=== PATIENT | male | born 1965 | race American Indian/Alaskan Native ===

== ENCOUNTER 2016-12-24 22:22 | Emergency (ER) | payer SELFPAY ==
[2016-12-24] MEDS ORDERED: NACL 0.9% IR ONE (23:30)
[2016-12-24] MEDS ORDERED: NACL 0.9% 500 ML IR ONE (23:31)
--- NOTE | 2016-12-25 00:30 | Emergency Department Report ---
ED Laceration HPI - HPI Chief Complaint: Laceration/Recheck/Suture Stated Complaint: HAND INJURY Time Seen by Provider: 12/25/16 00:19 Location: Upper Extremity Severity: moderate Tetanus Status: Up to Date Laceration Symptoms: Yes Pain, No Foreign Body Sensation, No Numbness, No Weakness Other History: Patient is a 51-year-old male presents to ED status post sustaining a hand laceration palm. Patient states he was in his garage open- ended door when one of the pellets cut him in hands palm. Patient states vaginal bleeding after incident bleeding was stopped with gauze wrap. Patient states he had tetanus booster about 2 years ago. Patient states minimal pain to the hand. ED Review of Systems ROS: Stated complaint: HAND INJURY Other details as noted in HPI Constitutional: denies: chills, fever Eyes: denies: eye pain, eye discharge, vision change ENT: denies: ear pain, throat pain Respiratory: denies: cough, shortness of breath, wheezing Cardiovascular: denies: chest pain, palpitations Endocrine: no symptoms reported Gastrointestinal: denies: abdominal pain, nausea, diarrhea Genitourinary: denies: urgency, dysuria Musculoskeletal: denies: back pain, joint swelling, arthralgia Skin: denies: rash, lesions Neurological: denies: headache, weakness, paresthesias Psychiatric: denies: anxiety, depression Hematological/Lymphatic: denies: easy bleeding, easy bruising ED Past Medical Hx - Past Medical History Previous Medical History?: No - Surgical History Past Surgical History?: No - Social History Smoking Status: Current Every Day Smoker Substance Use Type: None - Medications Home Medications: Home Medications Medication Instructions Recorded Confirmed Last Taken Type Cephalexin [Keflex] 500 mg PO BID #10 capsule 12/25/16 Unknown Rx Ibuprofen [Motrin] 800 mg PO Q8HR PRN #30 tablet 12/25/16 Unknown Rx Laceration Physical Exam - Exam General: Vital signs noted. No distress. Alert and acting appropriately. Wound Length (cm): 8 Laceration Location: Upper Extremity Laceration Exam: Yes Exposed Tendon, Vessel, or Nerve, Yes Normal Distal CMS, No Foreign Body, No Tendon Injury ED Course Vital Signs 12/24/16 23:09 Temperature 98 F Pulse Rate 77 Respiratory 16 Rate Blood Pressure 148/91 O2 Sat by Pulse 98 Oximetry - Laceration /Wound Repair Left Anterior Distal Hand Wound Location: upper extremity Wound Length (cm): 8 Wound's Depth, Shape: into muscle, linear Wound Explored: no foreign body removed Irrigated w/ Saline (ccs): 300 Betadine Prep?: Yes Anesthesia: Lidocaine w/ Epi Wound Repaired With: sutures Suture Size/Type: 5:0, proline, nylon Number of Sutures: 8 Layer Closure?: No Sterile Dressing Applied?: Yes ED Medical Decision Making - Medical Decision Making 51-year-old male presents with laceration to the hand. ED course: Hand x-rays were obtained, hand x-ray shows no fracture no dislocation of any kind. The 8cm laceration wound was prepped and draped in sterile fashion. Anesthesia was achieved with 4mL of 1% lidocaine. The wound was irrigated with 300cc NS and explored. There were no foreign bodies The wound was reapproximated in 1 layer with 5 mattress sutures and 3 sutures interrupted sutures percutaneously suing with 0 monofilament sutures in the dermis. There was excellent reapproximation of the wound edges. The patient tolerated the procedure without complication Discussed the patient to return to the ED E3 to 4 days for wound check to return to ED in 10-14 days for suture removal Critical care attestation.: If time is entered above; I have spent that time in minutes in the direct care of this critically ill patient, excluding procedure time. ED Disposition Clinical Impression: Laceration of hand Qualifiers: Encounter type: initial encounter Foreign body presence: without foreign body Disposition: DC-01 TO HOME OR SELFCARE Is pt being admited?: No Does the pt Need Aspirin: No Condition: Stable Instructions: Suture Care (ED), Laceration (ED), Suture Removal (ED) Additional Instructions: Return to ED in 10-14 days for removal of sutures. Prescriptions: Cephalexin [Keflex] 500 mg PO BID #10 capsule Ibuprofen [Motrin] 800 mg PO Q8HR PRN #30 tablet PRN Reason: Pain Referrals: PRIMARY MD TADEO [Primary Care Provider] - 3-5 Days JAYRO PEACOCK MD [Referring] - 3-5 Days [facility] [Outside] - 3-5 Days [facility] [Outside] - 3-5 Days Forms: Work/School Release Form(ED) Time of Disposition: 00:53
--- NOTE | 2016-12-25 01:23 | XRay Report ---
FINAL REPORT PROCEDURE: XR HAND 3+V LT TECHNIQUE: LEFT hand radiographs, AP, lateral, and oblique views. CPT 70295-IR HISTORY: injury COMPARISON: No prior studies are available for comparison. FINDINGS: Fracture (s) and/or Dislocation(s): None . Alignment: Normal . Joint space(s): Normal . Soft tissues: Normal . Bone mineralization: Normal . Foreign bodies: None . IMPRESSION: Normal Examination .
[2016-12-25] MEDS ORDERED: TRIPLE ANTIBIOTIC TP ONE (01:48)
[2016-12-25 02:21] VITALS: BP 160/96
== END 2016-12-25 02:21 | disposition home or self-care (01) ==
LOC: ED 22:22
DX: S61.412A Laceration without foreign body of left hand, initial encounter (principal); F17.200 Nicotine dependence, unspecified, uncomplicated; W20.8XXA Other cause of strike by thrown, projected or falling object, initial encounter; Y93.9 Activity, unspecified; Y92.9 Unspecified place or not applicable; Y99.9 Unspecified external cause status
CPT/HCPCS: A6250

== ENCOUNTER 2016-12-27 22:24 | Emergency (ER) | payer SELFPAY ==
[2016-12-27 22:33] VITALS: BP 126/88
== END 2016-12-27 23:20 | disposition left against medical advice (07) ==
LOC: ED 22:24
DX: Z48.02 Encounter for removal of sutures (principal)

== ENCOUNTER 2017-01-04 13:39 | Emergency (ER) | payer SELFPAY ==
--- NOTE | 2017-01-04 14:13 | Emergency Department Report ---
Suture/Staple Removal - HPI Chief Complaint: Laceration/Recheck/Suture Stated Complaint: SUTURE REMOVAL Time Seen by Provider: 01/04/17 14:02 When Sutures or Janell Placed: 8-10 Days Ago Wound Location: L palm ED Review of Systems ROS: Stated complaint: SUTURE REMOVAL Other details as noted in HPI Comment: Unobtainable due to pts medical conditions Constitutional: denies: chills, fever Gastrointestinal: denies: nausea, vomiting Skin: other (8 sutures to L palm ). denies: change in color ED Past Medical Hx - Social History Smoking Status: Current Every Day Smoker Substance Use Type: None - Medications Home Medications: Home Medications Medication Instructions Recorded Confirmed Last Taken Type Cephalexin [Keflex] 500 mg PO BID #10 capsule 12/25/16 Unknown Rx Ibuprofen [Motrin] 800 mg PO Q8HR PRN #30 tablet 12/25/16 Unknown Rx Suture Removal Exam - Exam General: Vital signs noted. No distress. Alert and acting appropriately. Wound: No Pathologic Erythema, No Tenderness, No Drainage, No Pus, No Wound Dehiscence Other Systems: All other systems reviewed and are unremarkable. distal end of suture site does not appear healed. ED Course - Reevaluation(s) Reevaluation #1: 01/04/17 14:13 PT aware of PE findings. Pt aware sutures not ready for removal. Pt aware we risk wound dehiscence if we remove sutures today. ED Recheck MDM - Differential Diagnosis Wound Recheck, Suture/Staple Removal Critical Care Time: No Critical care attestation.: If time is entered above; I have spent that time in minutes in the direct care of this critically ill patient, excluding procedure time. ED Disposition Clinical Impression: Encounter for wound re-check Disposition: DC-01 TO HOME OR SELFCARE Is pt being admited?: No Does the pt Need Aspirin: No Condition: Stable Instructions: Suture Care (ED) Additional Instructions: Return in 3 days for suture removal Follow up with PCP in 3-5 days for bp recheck Referrals: DG GLEZ MD [Referring] - 3-5 Days Time of Disposition: 14:16
[2017-01-04 14:30] VITALS: BP 133/91
== END 2017-01-04 14:30 | disposition home or self-care (01) ==
LOC: ED 13:39
DX: Z48.02 Encounter for removal of sutures (principal); Z53.21 Procedure and treatment not carried out due to patient leaving prior to being seen by health care provider

== ENCOUNTER 2017-01-08 09:30 | Emergency (ER) | payer SELFPAY ==
[2017-01-08 09:38] VITALS: BP 143/99
[2017-01-08] MEDS ORDERED: TRIPLE ANTIBIOTIC TP ONE (11:04)
--- NOTE | 2017-01-08 11:04 | Emergency Department Report ---
Suture/Staple Removal - [facility] Chief Complaint: Laceration/Recheck/Suture Stated Complaint: SUTURE REMOVAL Time Seen by Provider: 01/08/17 10:49 Wound Location: left palm ED Review of Systems ROS: Stated complaint: SUTURE REMOVAL Other details as noted in HPI Comment: All other systems reviewed and negative Constitutional: no symptoms reported Respiratory: no symptoms reported Cardiovascular: denies: chest pain, palpitations, edema, syncope Musculoskeletal: denies: arthralgia, myalgia Skin: other (laceration to left palm and here for suture removal). denies: rash Neurological: denies: headache, numbness, paresthesias ED Past Medical Hx - Past Medical History Previous Medical History?: Yes Hx Hypertension: Yes (no meds) Additional medical history: left hand lac - Surgical History Past Surgical History?: No - Family History Family history: hypertension - Social History Smoking Status: Current Every Day Smoker Substance Use Type: None Other Social History: Single - Medications Home Medications: Home Medications Medication Instructions Recorded Confirmed Last Taken Type Cephalexin [Keflex] 500 mg PO BID #10 capsule 12/25/16 Unknown Rx Ibuprofen [Motrin] 800 mg PO Q8HR PRN #30 tablet 12/25/16 Unknown Rx Sulfamethoxazole/Trimethoprim 1 each PO BID #14 tablet 01/08/17 Unknown Rx [Bactrim DS TAB] Suture Removal Exam - Exam General: Vital signs noted. No distress. Alert and acting appropriately. This is a 52-year-old male well-nourished well-developed in no acute distress. Wound: Yes Pathologic Erythema (Minimal to left palm lac.), Yes Tenderness ( Arouund laceration site), Yes Drainage (Scant, sero sang), No Pus, No Wound Dehiscence Other Systems: Skin: Laceration noted with 8 sutures to left palm below first digit extended close to proximal left palm area. Mild tenderness to palpate with minimal amount of drainage. Extremity:No clubbing cyanosis or edema. No neurovascular compromise. Patient able to open and close both hands without any difficulties. hand clinical veterinarian strong and equal bilaterally. +2 ulnar and radial pulses. No Signs of tendon injury. Normal sensation. +5/5 Strenght to extremities. Lungs: Clear to auscultate bilaterally, no rhonchi wheezes or rales. Cardiovascular: S1, S2. Regular rate and rhythm. No murmur noted. Psych: Normal mood and behavior ED Course Vital Signs 01/08/17 09:35 Temperature 97.8 F Pulse Rate 84 Respiratory 16 Rate Blood Pressure 143/99 O2 Sat by Pulse 99 Oximetry - Reevaluation(s) Reevaluation #1: 01/08/17 12:02 Stitches removed from left palm without any difficulties., Area cleansed and antibiotic ointment placed inside followed by sterile dressing. - Procedure Description Procedures done: Procedure: Laceration with stitches. 8 sutures removed from left palm laceration. Wound edges well approximated. Mild drainage noted from side with mild erythema. Area cleansed with normal saline, Neosporin ointment and sterile dry dressing. ED Recheck MDM - Medical Decision Making ED course: Patient with laceration to left palm and he is here for suture removal. Laceration 12/25/2016 with sutures. Small area around the laceration site with scant drainage and mild erythema with some tenderness to palpate. He completed Keflex and has no pain at present. Soft sutures removed from right palm laceration, saline uses clean side and Neosporin antibiotic followed by sterile nonadhesive dressing placed inside. Patient is instructed to keep affected Area clean and dry and put him on Bactrin DS for 7 days. Patient discharged home with prescription for Bactrim DS and to follow up with his primary care physician in 3-5 days if he does not have a primary care physician he can follow up with [facility]. Critical care attestation.: If time is entered above; I have spent that time in minutes in the direct care of this critically ill patient, excluding procedure time. ED Disposition Clinical Impression: Visit for suture removal, Cellulitis of palm of hand Disposition: TO HOME OR SELFCARE Is pt being admited?: No Does the pt Need Aspirin: No Condition: Stable Instructions: Cellulitis (ED), Suture Removal (ED), Acute Wound Care (ED) Additional Instructions: apply Neosporin to affected area daily Please follow up with primary care as recommended Increase fluid intake Take medication as prescribed . If you do for follow-up, fever, difficulty in moving fingers the left hand, feeling of stiffness and left hand, redness and increased drainage please return to the emergency room otherwise follow-up with the primary care physician Please keep affected area clean and dry Prescriptions: Sulfamethoxazole/Trimethoprim [Bactrim DS TAB] 1 each PO BID #14 tablet Referrals: PRIMARY CARE, [Primary Care Provider] - 3-5 Days [facility] [Outside] - 3-5 Days
== END 2017-01-08 12:15 | disposition home or self-care (01) ==
LOC: ED 09:30
DX: S61.412D Laceration without foreign body of left hand, subsequent encounter (principal); L03.114 Cellulitis of left upper limb; X58.XXXD Exposure to other specified factors, subsequent encounter; Y99.9 Unspecified external cause status; I10 Essential (primary) hypertension; F17.200 Nicotine dependence, unspecified, uncomplicated; Y92.89 Other specified places as the place of occurrence of the external cause
CPT/HCPCS: 99283; A6250